=== PATIENT | female | born 1990 | race Caucasian/White ===

== ENCOUNTER → 2022-08-24 15:55 | Outpatient (CLI) | payer BC, SELFPAY ==
[2022-08-24 18:11] LABS: HCG,Quantitative 85 mIU/ml (0-5.42)
== END ==
PROVIDERS: PCP Nurse Practitioner Family; Visit Provider Nurse Practitioner Obstetrics & Gynecology
DX: N92.6 Irregular menstruation, unspecified (principal)
CPT/HCPCS: 36415; 84702

== ENCOUNTER 2022-09-17 20:06 | Emergency (ER) | payer BC, SELFPAY ==
[2022-09-17 20:08] VITALS: BP 159/88; PULSE 88; RESP 17; TEMP 36.9; O2SAT 100; BMI 56.1
[2022-09-17 21:14] VITALS: BMI 39.9
[2022-09-17 21:32] LABS: Urine Pregnancy, HCG Qual. Positive (Negative)
[2022-09-17 21:59] LABS: Appearance,Urine CLEAR (Clear); Bilirubin,Urine Negative (Negative); Blood, Urine 3+ (Negative); Color,Urine YELLOW (Yellow); Glucose,Urine (UA) Negative (Negative); Ketones,Urine Negative (Negative); Leukocyte Esterase,Urine Negative (Negative); Microscopic, Urine URINE MICROSCOPIC (MICROSCOPIC); Nitrate,Urine Negative (Negative); Protein,Urine TRACE (Negative); Specific Gravity, Urine >= 1.030 (1.005-1.030); Urobilinogen,Urine 0.2 EU/dl (0.2)
--- NOTE | 2022-09-17 22:04 | US_ITS ---
PROCEDURE INFORMATION: Exam: US , Transvaginal and US Duplex Artery or Vein, Ovaries, Limited Exam date and time: 09/17/2022 10:15 PM Age: 31 years old Clinical indication: Lmp or gestational age (in weeks): 5w3; Antepartum complications; Bleeding; TECHNIQUE: Imaging protocol: Real-time transvaginal obstetrical ultrasound of the maternal pelvis and a first trimester with image documentation. Transvaginal imaging was used for better evaluation of the fetus, adnexa, and/or cervix. Real-time duplex ultrasound scan of the arterial or venous flow of the ovaries with B-mode, color Doppler flow and spectral waveform analysis, Limited Duplex. Duplex exam was performed to evaluate for torsion and other vascular conditions. COMPARISON: No relevant prior studies available. FINDINGS: BIOMETRY: Gestational age (AUA): Potentially 4 weeks and 6 days. Estimated due date (AUA): Potentially LEOBARDO 05/21/2023. MATERNAL: Uterus: Uterus is retroverted. Hypoechoic ovoid structure within the uterus. Yolk sac and pole are not visualized. Right ovary/adnexa: Normal duplex of the ovary. Normal Doppler waveforms and color flow. No evidence of ovarian torsion. Left ovary/adnexa: Normal duplex of the ovary. Normal Doppler waveforms and color flow. No evidence of ovarian torsion. Intraperitoneal space: No intraperitoneal free fluid. IMPRESSION: Hypoechoic ovoid structure within the uterus which may be an early gestational sac or pseudo gestational sac. Follow-up ultrasound and hCG can be obtained as clinically indicated.
--- NOTE | 2022-09-17 22:07 | HMH.EDUROGF ---
Discharge Plan Disposition Patient Disposition: Home, Self-Care Chief Complaint: Vaginal Bleeding Referrals Follow up/Referrals: Rhona Turcios [Primary Care Provider] - See instructions Clinical Impressions Clinical Impression: Threatened Instructions Patient Instructions: DI for Threatened Discharge ED Provider: Seymour Weiner Female Urogenital HPI General Chief complaint: Vaginal Bleeding Stated complaint: 5 WEEKS PREG BLEEDING FOR 3 HRS Time Seen by Provider: 09/17/22 22:07 Mode of Arrival: Family Vehicle Source of Information: Patient, Spouse and Medical Record Limitations: No Limitations Description of Symptoms (Recalled from ER Triage Doc. by RN): Pt c/o vaginal bleeding that began today @ 1700. States the bleeding was light, then moderate, and now has some punctate clots. She has had intermittent back pain and 1x episode of fleeting pelvic cramping. hx. Last was 12 yr ago, delivery @ ~37 wk. Pt has had pre-eclampsia what her 1st child. History of Present Illness HPI Narrative: 5 weeks preg with bleeding and back pain - MD Complaint: other (vag bleeding) Onset (ago): hour(s) Severity: moderate Duration: intermittent Vaginal discharge: blood : Yes Associated symptoms: denies other symptoms Related Data Allergies Allergy/AdvReac Type Severity Reaction Status Date / Time cefprozil [From Cefzil] Allergy Verified 09/07/22 08:59 Cephalosporins Allergy Verified 09/07/22 08:59 PFSH [facility] Medical History (Updated 09/17/22 @ 23:32 by Seymour Weiner MD) Early stage of Social History Smoking Status: Never smoker alcohol intake: never current occupational status: employed Travel in the last 8 weeks: None ROS Obtained: Yes All systems reviewed & no additional complaints except as documented Physical Exam General General appearance: alert Head Head exam: normocephalic Eye Eye exam: Present PERRL and EOMI ENT ENT exam: Present mucous membranes moist Neck Neck exam: Present trachea midline Respiratory Respiratory exam: Absent respiratory distress Cardiovascular Cardiovascular exam: Present regular rate Abdominal Exam Abdominal exam: Present soft Extremities Exam Extremities exam: Present full ROM Neurological Exam Neurological exam: Present alert, oriented X3 and CN II-XII intact Skin Skin exam: Absent rash Medical Decision Making Medical Records Medical records reviewed: Yes I reviewed the patient's medical records. Samuel Inquiry Pt receiving controlled substance: No Vital Signs: 09/17/22 20:08 Temperature 98.4 F Temperature Source Oral Pulse Rate [Right] 88 Respiratory Rate 17 Blood Pressure [Right Arm] 159/88 H Blood Pressure Mean [Right Arm] 111 Blood Pressure Source [Right Arm] Automatic Cuff 02 Sat by Pulse Oximetry 100 Oxygen Delivery Method Room Air Lab Data Lab results reviewed: Yes I reviewed the patient's lab results. Lab Results 09/17/22 20:13: Urine HCG, Qual Positive 09/17/22 20:15: Urine Color Yellow, Urine Appearance Clear, Urine pH 6.0, Ur Specific [place] >= 1.030, Urine Protein Trace, Urine Glucose (UA) Negative, Urine Ketones Negative, Urine Blood 3+, Urine Nitrate Negative, Urine Bilirubin Negative, Urine Urobilinogen 0.2, Ur Leukocyte Esterase Negative, Urine RBC 20-50, Ur Squamous Epith Cells 3-5, Urine Bacteria 1+, Urine Mucus 1+ 09/17/22 21:45: WBC 11.1 H, RBC 4.86, Hgb 14.0, Hct 43.0, MCV 88.5, MCH 28.7, MCHC 32.5, RDW 14.4, Plt Count 248, MPV 8.8, Neut % (Auto) 64.8, Lymph % (Auto) 30.0, Wise % (Auto) 4.0, Eos % (Auto) 0.7, Baso % (Auto) 0.6, Neut # (Auto) 7.2, Lymph # (Auto) 3.3, Wise # (Auto) 0.4, Eos # (Auto) 0.1, Baso # (Auto) 0.1 09/17/22 21:45: Sodium 140, Potassium 3.6, Chloride 99, Carbon Dioxide 27, Anion Gap 17.6 H, BUN 10, Creatinine 0.80, Estimated Creat Clear 173, Estimated GFR 83, Est GFR ( Amer) 101, Glucose 1
[2022-09-17 22:09] LABS: Bacteria,Urine 1+ /lpf; Mucus,Urine 1+ /lpf; RBC,Urine 20-50 #/hpf (0-3)
[2022-09-17 22:28] LABS: Alanine Aminotransferase 49 U/L (12-78); Albumin Level 4.8 g/dl (3.5-5.0); Albumin/Globulin Ratio 1.7 (1.1-1.8); Alkaline Phosphatase 59 U/L (38-126); Anion Gap 17.6 mEq/L (5-15); Aspartate Amino Transferase 41 U/L (14-36); Basophils # 0.1 K/mm3 (0-0.2); Basophils % 0.6 % (0.1-2.0); Bilirubin,Total 0.3 mg/dl (0.2-1.3); Blood Urea Nitrogen 10 mg/dl (7-17); Calcium 9.6 mg/dl (8.4-10.2); Carbon Dioxide 27 mmol/L (22.0-30.0); Chloride 99 mmol/L (98-107); Creatinine Clearance Estimated 173 mL/min (50-200); Eosinophils # 0.1 K/mm3 (0.0-0.4); Eosinophils % 0.7 % (0.1-12.0); Estimated Glomerular Filt Rate 83 ml/min (>60); GFR (African American) 101 ML/MIN (>60); Globulin 2.9 g/dL (1.3-3.2); Glucose 104 mg/dl (74-100); Lymphocytes # 3.3 K/mm3 (0.7-4.5); Mean Corpuscular HGB Conc 32.5 g/dL (31.8-35.4); Mean Corpuscular Hemoglobin 28.7 pg (27.0-31.2); Mean Corpuscular Volume 88.5 fl (81-99); Mean Platelet Volume 8.8 fl (7.4-10.4); Monocytes # 0.4 K/mm3 (0.1-1.0); Neutrophils # 7.2 K/mm3 (1.8-7.8); Neutrophils % 64.8 % (37.0-80.0); Platelet Count 248 K/mm3 (142-424); Potassium 3.6 mmoL/L (3.5-5.1); Red Blood Count 4.86 M/mm3 (4.20-5.40); Red Cell Distribution Width 14.4 % (11.5-17.5); Sodium 140 mmol/L (136-145); Total Protein,Serum 7.7 g/dl (6.3-8.2); White Blood Count 11.1 K/mm3 (4.8-10.8)
[2022-09-17 22:35] VITALS: RESP 17; O2SAT 100
[2022-09-17 22:45] LABS: HCG,Quantitative 466 mIU/ml (0-5.42)
--- NOTE | 2022-09-17 23:26 | PC.NURSE ---
Dr. Weiner s/w pt & her spouse
[2022-09-17 23:46] VITALS: BP 132/79; RESP 17; TEMP 36.9; O2SAT 100
[2022-09-17 23:48] VITALS: BP 132/79; PULSE 89; RESP 16; TEMP 37.1; O2SAT 100
== END 2022-09-17 23:51 | disposition home or self-care (01) ==
PROVIDERS: Emergency Provider Emergency Medicine; PCP Nurse Practitioner Family
DX: O20.0 Threatened abortion (principal); Z3A.01 Less than 8 weeks gestation of pregnancy; Z88.8 Allergy status to other drugs, medicaments and biological substances
CPT/HCPCS: 76817; 80053; 81001; 81025; 84702; 85025; 99284

== ENCOUNTER → 2022-09-19 09:49 | Outpatient (CLI) | payer BC, SELFPAY ==
[2022-09-19 11:13] LABS: HCG,Quantitative 343 mIU/ml (0-5.42)
== END ==
PROVIDERS: PCP Nurse Practitioner Family; Visit Provider Nurse Practitioner Obstetrics & Gynecology
DX: O20.0 Threatened abortion (principal)
CPT/HCPCS: 36415; 84702

== ENCOUNTER → 2023-03-27 16:04 | Outpatient (CLI) | payer BC, SELFPAY ==
[2023-03-27 19:34] LABS: HCG,Quantitative 43 mIU/ml (0-5.42)
[2023-03-29 12:22] LABS: Progesterone 0.1 ng/mL (.)
== END ==
PROVIDERS: PCP Nurse Practitioner Family; Visit Provider Obstetrics & Gynecology
DX: Z78.9 Other specified health status (principal)
CPT/HCPCS: 36415; 84144; 84702

== ENCOUNTER → 2023-04-04 08:21 | Outpatient (CLI) | payer BC, SELFPAY ==
[2023-04-04 10:12] LABS: HCG,Quantitative 34 mIU/ml (0-5.42)
== END ==
PROVIDERS: PCP Nurse Practitioner Family; Visit Provider Nurse Practitioner Obstetrics & Gynecology
DX: Z34.90 Encounter for supervision of normal pregnancy, unspecified, unspecified trimester (principal)
CPT/HCPCS: 36415; 84144; 84702

== ENCOUNTER 2023-11-11 15:16 | Outpatient (CLI) | payer BC, SELFPAY ==
[2023-11-11 15:58] LABS: Hemoglobin 12.7 g/dL (12.2-16.2); White Blood Count 8.7 K/mm3 (4.8-10.8)
[2023-11-11 15:59] LABS: Mean Corpuscular HGB Conc 34.4 g/dL (31.8-35.4); Mean Corpuscular Hemoglobin 29.6 pg (27.0-31.2); Mean Platelet Volume 8.3 fl (7.4-10.4); Platelet Count 282 K/mm3 (142-424); Red Cell Distribution Width 13.9 % (11.5-17.5)
[2023-11-11 16:01] LABS: Basophils % 0.3 % (0.1-2.0); Eosinophils # 0.1 K/mm3 (0.0-0.4); Eosinophils % 1.6 % (0.1-12.0); Lymphocytes # 2.8 K/mm3 (0.7-4.5); Lymphocytes % 31.9 % (10-50); Monocytes # 0.4 K/mm3 (0.1-1.0); Neutrophils # 5.4 K/mm3 (1.8-7.8); Neutrophils % 62.2 % (37.0-80.0)
[2023-11-11 16:07] LABS: Chloride 106 mmol/L (98-107); Potassium 4.3 mmoL/L (3.5-5.1); Sodium 139 mmol/L (136-145)
[2023-11-11 16:10] LABS: Alanine Aminotransferase 45 U/L (12-78); Albumin Level 4.3 g/dl (3.5-5.0); Albumin/Globulin Ratio 1.7 (1.1-1.8); Alkaline Phosphatase 52 U/L (38-126); Anion Gap 10.3 mEq/L (5-15); Aspartate Amino Transferase 38 U/L (14-36); Bilirubin,Total 0.4 mg/dl (0.2-1.3); Blood Urea Nitrogen 11 mg/dl (7-17); Carbon Dioxide 27 mmol/L (22.0-30.0); Estimated Glomerular Filt Rate 96 ml/min (>60); GFR (African American) 117 ML/MIN (>60); Globulin 2.5 g/dL (1.3-3.2); Total Protein,Serum 6.8 g/dl (6.3-8.2)
[2023-11-11 16:11] LABS: Calcium 8.8 mg/dl (8.4-10.2); Glucose 97 mg/dl (74-100)
[2023-11-11 16:24] LABS: Hemoglobin A1C 5.1 % (4.0-6.0)
[2023-11-11 16:42] LABS: Thyroid Stimulating Hormone 2.41 uIU/mL (0.465-4.68)
[2023-11-13 08:15] LABS: Estradiol 28.5 pg/mL (.)
[2023-11-13 14:19] LABS: Anti-Cardio Antibody IgM <9 MPL U/mL (0-12); Anti-Cardiolipin Antibody IgG <9 GPL U/mL (0-14)
[2023-11-14 17:14] LABS: Beta-2 Glycoprotein I Ab, IgG <9 (0-20); Beta-2 Glycoprotein I Ab, IgM <9 (0-32)
[2023-11-20 11:39] LABS: Testosterone, Total, LC/MS 17 ng/dL (.)
[2023-11-20 12:30] LABS: APTT 26.6 sec (.); Anti-Cardiolipin Antibody IgG <10 GPL (.); Anti-Cardiolipin Antibody IgM <10 MPL (.); Beta-2 Glycoprotein I Ab, IgA <10 SAU (.); Beta-2 Glycoprotein I Ab, IgG <10 SGU (.); Beta-2 Glycoprotein I Ab, IgM <10 SMU (.); Hexagonal Phase Phospholipid 4 sec (.); INR 0.9 ratio (.); Prothrombin Time 10.1 sec (.)
== END 2023-11-11 23:59 ==
LOC: LAB 15:17
PROVIDERS: PCP Nurse Practitioner Family; Visit Provider Obstetrics & Gynecology
DX: N96 Recurrent pregnancy loss (principal)
CPT/HCPCS: 36415; 80053; 82670; 83036; 84403; 84443; 85025; 85597; 85598; 85610; 85613; 85670; 85730; 86146; 86147

== ENCOUNTER 2023-11-14 15:35 | Outpatient (CLI) | payer BC, SELFPAY ==
--- NOTE | 2023-11-14 15:36 | US_ITS ---
PROCEDURE: US TRANSVAGINAL CLINICAL INDICATION: history of recurrent miscarriages COMPARISON: No exams were available for comparison FINDINGS: Transvaginal sonographic images of the pelvis were obtained. UTERUS: 8.1cm x 3.9cmx 4.3cm anteverted with a combined endometrial thickness of 9.8mm. There are multiple small nabothian cysts. A scar is present on the anterior uterus. LEFT OVARY: 2.8cmx1.8cm There is a dominant follicle measuring 1.0 cm x 1.1 cm. The ovary has a polycystic appearance. RIGHT OVARY: 3.2cmx 3.2mx2.2cm with a volume of 12.1ml. Multiple small follicles consistent with a polycystic ovary. Both ovaries are seen and appear polycystic. Doppler flow to both ovaries are seen. There is no fluid in the cul-de-sac. IMPRESSION: 1. Anteverted uterus normal in shape and size. The endometrium appears normal. 2. Both ovaries are seen and appear polycystic. 3. No fluid in the cul-de-sac. Dictated by: Jimmy Fay MD 11/23/2023 10:06 Jimmy Fay MD in OV 11/23/2023 10:06
== END 2023-11-14 23:59 ==
LOC: RAD 15:36
PROVIDERS: PCP Nurse Practitioner Family; Visit Provider Obstetrics & Gynecology
DX: N96 Recurrent pregnancy loss (principal)
CPT/HCPCS: 76830

== ENCOUNTER 2024-02-10 15:42 | Outpatient (CLI) | payer BC, SELFPAY ==
[2024-02-10 17:26] LABS: HCG,Quantitative < 2 mIU/ml (0-5.42)
== END 2024-02-10 23:59 ==
LOC: LAB 15:42
PROVIDERS: PCP Nurse Practitioner Family; Visit Provider Obstetrics & Gynecology
DX: N92.6 Irregular menstruation, unspecified (principal)
CPT/HCPCS: 36415; 84702

== ENCOUNTER 2024-09-09 07:41 | Outpatient (CLI) | payer BC, SELFPAY ==
--- NOTE | 2024-09-09 08:50 | P.PCN_ITS ---
[facility] Procedure Note Date: 09/09/24 Time: 08:04 Procedure Note:: Patient was positioned in the dorsal lithotomy position on a rolled towel to raise her hips. Medium sized speculum was inserted. Cervix and vagina was cleansed with Hibiclens. Tenaculum was placed on anterior lip of the cervix. 20 cc of contrast was drawn up into a syringe and attached to the Lexy HSG cannula. Contrast was flushed through cannula to remove air bubbles and ensure patency. Cannula was then inserted into the cervix. Fluoroscopy demonstrated small amount of contrast in the cervix and retrograde flow into the vagina. Cannula was removed from the cervix. Medium sized speculum was removed from the vagina and a large speculum was inserted for better visualization of the cervix. Cervix cleansed with Hibiclens. Cannula was again inserted into the cervix. Fluoroscopy showed small amount of contrast in the cervix with retrograde flow into the vagina. No contrast in the uterine cavity. Cannula was removed from the cervix. Attempt to dilate the internal os with pediatric dilators was unsuccessful secondary to stenosis. Discussed findings with Amy. Tenaculum was removed from the cervix. Small amount of oozing noted from right tenaculum site. Pressure applied to tenaculum site with sponge stick. Silver nitrate stick x 1 applied to tenaculum site. Reevaluation of tenaculum site demonstrated hemostasis. Speculum removed from the vagina. She tolerated procedure attempt very well. Recommended diagnostic hysteroscopy in the OR with oral Cytotec prior to procedure to help with cervical stenosis. She will talk with her and call the office if she decides to proceed with diagnostic hysteroscopy.
== END 2024-09-09 23:59 | disposition home or self-care (01) ==
LOC: RAD 07:42
PROVIDERS: PCP Nurse Practitioner Family; Visit Provider Obstetrics & Gynecology
DX: N46.9 Male infertility, unspecified (principal)

== ENCOUNTER 2024-11-25 16:00 | Outpatient (RCR) | payer BC, SELFPAY | END 2024-11-25 23:59 | disposition home or self-care (01) | LOC: PT 16:00 | PROVIDERS: PCP Nurse Practitioner Family; Visit Provider Nurse Practitioner Family | DX: M25.561 Pain in right knee (principal) | CPT/HCPCS: 97014; 97110; 97163; 97530; G0283 ==

== ENCOUNTER 2024-12-17 16:00 | Outpatient (RCR) | payer BC, SELFPAY | END 2024-12-17 23:59 | disposition home or self-care (01) | LOC: PT 16:00 | PROVIDERS: PCP Nurse Practitioner Family; Visit Provider Nurse Practitioner Family | DX: M25.561 Pain in right knee (principal) | CPT/HCPCS: 97014; 97110; 97530; G0283 ==